=== PATIENT | male | born 2000 ===

== ENCOUNTER 2023-02-24 14:15 | Emergency (ER) | payer BC, SELFPAY ==
[2023-02-24 14:22] VITALS: BP 128/84; PULSE 68; RESP 16; TEMP 36.3; O2SAT 98; BMI 32.1
--- NOTE | 2023-02-24 14:30 | ED.GENADULT ---
HPI - General Adult General Chief complaint: Ear/Nose/Throat Problem Stated complaint: R ear pain possible infection, hearing loss Time Seen by Provider: 02/24/23 14:19 Source: patient Mode of arrival: ambulatory Limitations: no limitations History of Present Illness HPI narrative: [age] year male presenting today with right-sided ear pain going on for 3 days. He denies any drainage. States that his hearing seems a bit muffled. Denies fevers or chills. No recent upper respiratory infection or congestion. No trauma to the ear. Related Data Previous Rx's Medication Instructions Recorded [id number] 3.3 5 drp Otic (ear-right) 5XD 5 days 02/24/23 mg-3 mg-10 mg-0.5 mg/mL ear #10 mL drops,susp (Cortisporin-TC) Allergies Allergy/AdvReac Type Severity Reaction Status Date / Time No Known Drug Allergies Allergy Verified 02/24/23 14:21 Review of Systems Status of ROS: Reports: 10 or more systems reviewed and unremarkable except as noted in History and below PFSH [facility] Social History Smoking Status: Never smoker Do you use any of these nicotine containing products: None How often do you have a drink containing alcohol: never AUDIT-C Alcohol total score: 0 Non-prescribed substance use: denies use Exam Narrative: Exam Narrative: Well-nourished well-developed patient in no acute distress. Alert and oriented. Answers questions appropriately. Mood and affect are appropriate. Thoughts are goal oriented and rational. No tangential or magical thinking noted. Patient speaks in full sentences without needing to catch his breath. Speech is not slurred or pressure. Patient does not sound congested. HEENT: Normocephalic atraumatic. Pupils are equally round reactive to light. Extraocular muscles are intact. Conjunctivae are moist without any icterus noted. Moist mucous membranes. Left TM appears normal. Right TM is normal, however, the ear canal is swollen with white exudate present within the canal. He has some mild tenderness to tugging of the tragus. Skin: Well perfused without any obvious rashes. Const: Vital Signs, click to edit/add: Vital Signs - 24 hr 02/24/23 14:22 Temperature 97.4 F L Pulse Rate [Femora l] 68 Respiratory Rate 16 Blood Pressure [Ri ght Upper Arm] 128/84 Pulse Oximetry 98 Oxygen Delivery Me thod Room Air Course Vital Signs Vital signs: Initial Vital Signs Temperature 97.4 F L 02/24/23 14:22 Temperature Source Temporal Artery Scan 02/24/23 14:22 Pulse Rate 68 02/24/23 14:22 Respiratory Rate 16 02/24/23 14:22 Blood Pressure 128/84 02/24/23 14:22 Blood Pressure Mean 98 02/24/23 14:22 Pulse Oximetry 98 02/24/23 14:22 Oxygen Delivery Method Room Air 02/24/23 14:22 Vital Signs Temperature 97.4 F L 02/24/23 14:22 Pulse Rate 68 02/24/23 14:22 Respiratory Rate 16 02/24/23 14:22 Blood Pressure 128/84 02/24/23 14:22 Pulse Oximetry 98 02/24/23 14:22 Oxygen Delivery Method Room Air 02/24/23 14:22 Temperature 97.4 F L 02/24/23 14:22 Pulse Rate 68 02/24/23 14:22 Respiratory Rate 16 02/24/23 14:22 Blood Pressure 128/84 02/24/23 14:22 Pulse Oximetry 98 02/24/23 14:22 Oxygen Delivery Method Room Air 02/24/23 14:22 Medical Decision Making MDM Narrative Medical decision making narrative: 22-year-old male with otitis externa. Will treat with Cortisporin ear drops. Discharge Plan Discharge Clinical Impression: Otitis externa Patient Disposition: Home, Self-Care Condition: Stable Additional Instructions: Plan your left side and put 5 drops of medication into the right ear. Let it penetrate for 5-10 minutes before getting up. Follow-up with primary care provider in 7-10 days Prescriptions: New Cortisporin-TC 3.3-3-10-0.5 mg/mL drops,suspension 5 drp Otic (ear-right) 5XD 5 Days Qty: 10 1RF Stand Alone Forms: MyHealth Info Instructions
== END 2023-02-24 14:57 | disposition home or self-care (01) ==
PROVIDERS: Emergency Provider Family Medicine
DX: H60.91 Unspecified otitis externa, right ear (principal)
CPT/HCPCS: 99283